=== PATIENT | female | born 1995 | race Caucasian/White ===

== ENCOUNTER 2016-06-13 10:57 | Emergency (ER) | payer MEDICAID ==
[2016-06-13 11:09] VITALS: BP 140/74; PULSE 110; TEMP 98.5
[2016-06-13 11:10] VITALS: BMI 38.4
--- NOTE | 2016-06-13 11:10 | EDPRACDOC ---
- General Information Stated Complaint: COUGH/ SORE THROAT/ HEADACHE Time Seen by Provider: 06/13/16 11:05 Information Source: Patient Home Medications: Home Medications Ketorolac Tromethamine 10 mg PO Q6H PRN #20 tab 12/29/15 Multivit-Min/Folic Acid/Biotin [Hair, Skin & Nails Caplet] 2 each PO DAILY 12/28 Oxycodone HCl/Acetaminophen [Percocet 5-325 mg Tablet] 1 - 2 tab PO Q4H PRN #30 tab 01/02/16 Propranolol HCl 20 mg PO BID #60 tablet 01/02/16 Amoxicillin Trihydrate [Amoxicillin] 500 mg PO TID #21 tab 06/13/16 Hydrocodone Bit/Acetaminophen [Lortab 5/325] 1 tab PO Q4-6H PRN #15 tab Promethazine [Phenergan] 25 mg PO Q4-6H PRN #15 tab 06/13/16 Allergies/Adverse Reactions: Allergies Allergy/AdvReac Type Severity Reaction Status Date / Time No Known Allergies Allergy Verified 01/02/16 01:29 - History of Present Illness Onset: 2 days HPI: Pt c/o headache, sore throat, congestion, cough, nausea x 2-3 days. Denies fever , earache, sob, vomiting, diarrhea, rash. Current Symptoms: Reports: Cough, Headache, Nasal Symptoms, Sore Throat, Nausea Shortness of Breath: None Cough: Reports: Non-productive Rhinorrhea: Reports: Clear Ear Symptoms: Reports: None Fever Severity/Quality: Reports: no fever Oral Intake: Normal Urinary Output: Normal Relevant History of: None Associated Signs & Symptoms:: Reports: Cough, Headache, Nasal Symptoms, Sore Throat, Nausea ED Past Medical History - History Reviewed Yes Nurses notes reviewed and agree except as marked - Patient Medical History GI/ History: Denies: Urinary Tract Infection Musculoskeletal History: Reports: Arthritis (Bilat knees) Psychological History: Denies: Depression, Substance Use Disorder - Family Medical History Reports: Hypertension (PGM, MGM), Diabetes (PGM, MGM), Cancer (MGF,), Cardiac Disorders (PGM, MGM). Denies: Stroke - Social Medical History Smoking Status: Never smoker Social History: Denies: Amphetamine Use, Barbiturate Use, Benzodiazipine Use, Cocaine Use, Heroin Use, Marijuana Use, Methadone Use, MDMA (Ecstasy) Use, Substance Use Disorder ETOH: None Substance Abuse: None EDM Review of Systems - Review of Systems Constitutional: No Symptoms Reported. negative: Fever, Chills, Weakness, Fatigue, Loss of Appetite Eyes: No Symptoms Reported. negative: Redness, Blurred Vision, Double Vision, Discharge, Pain, Light Sensitive, Photophobia Ears: No Symptoms Reported. negative: Pain, Hearing Loss, Drainage, Ear Pulling Throat: Pain Nose: Congestion Mouth: No Symptoms Reported. negative: Pain, Drooling Respiratory: Cough Cardiovascular: No Symptoms Reported. negative: Chest Pain, Palpitations, Syncope, Edema, Orthopnea, PND, Skin Mottling, Cyanosis Gastrointestinal: Nausea Genitourinary: No Symptoms Reported. negative: Dysuria, Hematuria, Frequency, Discharge, Bleeding, Testicular Pain, Neurological: Headache Musculoskeletal: No Symptoms Reported. negative: Neck, Chestwall, Ribs, Back, Shoulder, Arm, Elbow, Forearm, Wrist, Hand, Pelvis, Hip, Femur, Knee, Leg, Ankle , Foot Integumentary: No Symptoms Reported. negative: Itching, Rash, Bruising, Wound Allergic/Immunologic: No Symptoms Reported. negative: Hives, Itching Hematologic: No Symptoms Reported. negative: Lymphadenopathy, Easy Bruising, Easy Bleeding Psychiatric: No Symptoms Reported. negative: Anxiety, Depression, Hallucinations, Insomnia, Suicidal - Physical Exam Constitutional: Alert Oriented to: Time, Person, Place Last recorded Vital Signs: Last Vital Signs Temp 98.5 F 06/13/16 11:06 Pulse 110 06/13/16 11:06 Resp 20 06/13/16 11:06 BP 140/74 06/13/16 11:06 Pulse Ox 99 06/13/16 11:06 Oxygen Pulse Oxygen Saturation 99 O2 Device Room Air Oxygen Flow Rate Fraction of Inspired Oxygen ( FIO2) - HEENT Head: Normal ( normocephalic) Eye Exam: Normal (PERRL, EOMI, Sclera white) Oropharynx: Exudate, Red, Tonsillar Hypertrophy Tympanic Membrane: Normal ENT EAC: Normal Nose: Congestion Neck: Normal (FROM, trachea at midline) - Respiratory/Cardiovascular Respiratory: Normal - CTA (BBS clear to auscultation without adventitious sounds ) Cardiovascular: Normal (RRR without murmur, gallop or rub) - GI Auscultation: Normal (NABS) Palpation: Normal (Soft,No rebound or guarding, non distended) Tenderness: Non tender - Musculoskeletal Back: Normal (Non-Tender) Extremities: Normal (Normal tone, Pulses 2+ No cyanosis or edema, FROM) - Integumentary Skin: Normal, Warm, Dry Lymphatics: Normal (no adenopathy) - Neurologic Memory Impaired: Normal Motor Function: Normal (Normal tone, Pulses 2+ No cyanosis or edema, FROM) Mood Description: Normal Perception: Normal - Differential Diagnosis Bronchitis, Pneumonia, Streptococcal, URI, Viral Decision Time to Discharge: 11:08 - Departure Disposition: Home Condition: Good Final Diagnosis: Strep pharyngitis Headache Qualifiers: Headache type: unspecified Headache chronicity pattern: acute headache Intractability: not intractable Qualified Code(s): R51 - Headache Instructions: Headache, Headache,FAQ's, Strep Throat (ED) Education/Counseling Given To: Patient Education/Counseling Given Regarding: Diagnosis, Treatment, Follow Up Referrals: Lizz Sharp PA [Primary Care Provider] - One Week Prescriptions: Amoxicillin Trihydrate [Amoxicillin] 500 mg PO TID #21 tab Hydrocodone Bit/Acetaminophen [Lortab 5/325] 1 tab PO Q4-6H PRN #15 tab PRN Reason: Pain Promethazine [Phenergan] 25 mg PO Q4-6H PRN #15 tab PRN Reason: Nausea/Vomiting Additional Instructions: Use Tylenol every 4 hours and Motrin every 6 hours as needed for fever.
== END 2016-06-13 11:16 | disposition home or self-care (01) ==
LOC: EDMC 10:57
DX: J02.0 Streptococcal pharyngitis (principal); R51 Headache
CPT/HCPCS: 99282